=== PATIENT | female | born 1990 | race Two or more races ===

== ENCOUNTER 2022-02-13 17:15 | Emergency (ER) | payer OTHER ==
[2022-02-13 17:23] VITALS: BMI 18.6
[2022-02-13] MEDS ORDERED: ACETAMINOPHEN 325 MG TABLET (FP) PO ONE (17:58)
[2022-02-13] MEDS ORDERED: IBUPROFEN 600 MG TABLET (FP) PO ONE ×2 (17:58→18:08)
[2022-02-13] MEDS ORDERED: SODIUM CHLORIDE 0.9% 500 ML INFUS.BAG IV ONE (17:58)
[2022-02-13] MEDS ORDERED: ACETAMINOPHEN 325 MG TABLET (FP) ONE (18:07)
[2022-02-13 19:41] VITALS: BP 101/54; PULSE 121; TEMP 99.2
[2022-02-14 16:08] LABS: SARS-CoV-2 NAA Detected (Not Detected)
== END 2022-02-13 20:00 | disposition home or self-care (01) ==
LOC: JER 17:15
DX: U07.1 COVID-19 (principal); R68.83 Chills (without fever)
CPT/HCPCS: 87651; 87804; 99283-25; C9803-CS; U0003; U0005

== ENCOUNTER 2024-09-18 09:10 | Inpatient (IN) | payer OTHER ==
[2024-09-18] MEDS: LACTATED RINGERS SOLUTION 500 ML IV ONE (10:27)
[2024-09-18] MEDS ORDERED: morphine SULFATE 4 MG/ML VIAL ONE (13:03)
[2024-09-18] MEDS: morphine SULFATE 4 MG/ML VIAL IVPUSH ONE (13:10)
[2024-09-18] MEDS: LACTATED RINGERS SOLUTION 1,000 ML IV SCH (14:34)
[2024-09-18 16:19] VITALS: BMI 27.1
[2024-09-18 17:38] LABS: HEMATOCRIT 40.5 % (32.4-45.2); HEMOGLOBIN 13.8 GM/dL (10.7-15.3); MCH 33.4 pg (25.7-33.7); MCHC 34.1 g/dl (32.0-36.0); MEAN CELL VOLUME 97.9 fl (80-96); MEAN PLT VOLUME 9.2 fl (7.5-11.1); PLATELET COUNT 122 10^3/uL (134-434); RBC 4.14 M/mm3 (3.60-5.2); RDW 13.3 % (11.6-15.6); WHITE BLOOD COUNT 13.4 K/mm3 (4.0-10.0)
[2024-09-18 17:47] LABS: INR 0.91 (0.83-1.09); PROTHROMBIN TIME (PATIENT) 10.5 SEC (9.7-13.0)
[2024-09-18 17:49] LABS: ACTIVATED PTT 26.4 SECONDS (25.2-36.5)
[2024-09-18 18:00] LABS: POTASSIUM 3.7 mmol/L (3.5-5.1)
[2024-09-18 18:02] LABS: BLOOD UREA NITROGEN 4.1 mg/dL (7-18)
[2024-09-18 18:05] LABS: CREATININE 0.5 mg/dL (0.55-1.3)
[2024-09-18] MEDS ORDERED: FENTANYL/BUPIVACAINE/NS/PF - PCEA - 50 ML DISP.SYRIN EP ONE (18:50)
[2024-09-18] MEDS ORDERED: NALOXONE HCL 0.4 MG/ML VIAL IVPUSH PRN (18:54)
[2024-09-18] MEDS ORDERED: BUPIVACAINE HCL/PF 0.25% (2.5MG/ML) 10 ML VIAL ONE ×3 (18:57→20:06)
[2024-09-18] MEDS: FENTANYL/BUPIVACAINE/NS/PF - PCEA - 50 ML DISP.SYRIN EP SCH (19:15)
[2024-09-18] MEDS ORDERED: FENTANYL CITRATE/PF 50 MCG/ML VIAL ONE (19:37)
[2024-09-18 20:34] LABS: ANISOCYTOSIS 1+; MACROCYTOSIS 1+
[2024-09-18] MEDS ORDERED: LIDOCAINE HCL 1% PRESERVATIVE FREE - 30ML VIAL ONE (22:20)
[2024-09-18] MEDS ORDERED: OXYTOCIN 20 UNITS in 0.9% NS 20 UNIT/1,000 ML INFUS.BAG IV ONE (22:20)
[2024-09-18] MEDS ORDERED: TERBUTALINE SULFATE 1 MG/1 ML VIAL SQ ONE (22:51)
[2024-09-18] MEDS: TERBUTALINE SULFATE 1 MG/1 ML VIAL SQ ONE (22:55)
[2024-09-19] MEDS ORDERED: FENTANYL/BUPIVACAINE/NS/PF - PCEA - 50 ML DISP.SYRIN EP ONE (00:02)
[2024-09-19] MEDS: OXYTOCIN 20 UNITS in 0.9% NS 20 UNIT/1,000 ML INFUS.BAG IV SCH (00:15)
[2024-09-19 00:47] LABS: CORD BASE EXCESS -8.8 mmol/L (0-2); CORD HCO3 19.5 mmHg (20-29); CORD HCO3 20.7 mmHg (20-29); CORD PCO2 42.7 mmHg (30-78); CORD PCO2 59.3 mmHg (30-78); CORD pH 7.161 (7.14-7.44); CORD pH 7.277 (7.14-7.44)
[2024-09-19] MEDS ORDERED: METHYLERGONOVINE MALEATE 0.2 MG/1 ML AMP IM PRN (00:48)
[2024-09-19] MEDS ORDERED: ACETAMINOPHEN 325 MG TABLET (FP) PO PRN (00:48)
[2024-09-19] MEDS ORDERED: WITCH HAZEL 50% (TUCKS) 40 PAD/JAR PAD TP PRN (00:48)
[2024-09-19] MEDS ORDERED: BENZOCAINE 20% 57 GM BOTTLE TP PRN (00:48)
[2024-09-19] MEDS ORDERED: BISACODYL 10 MG SUPP.RECT RC PRN (00:48)
[2024-09-19] MEDS ORDERED: BENZOCAINE 28 GM HEMORRHOIDAL OINTMENT TP PRN (00:48)
[2024-09-19] MEDS ORDERED: oxyCODONE HCL 5 MG TABLET PO PRN (00:48)
[2024-09-19] MEDS: IBUPROFEN 600 MG TABLET (FP) PO PRN (03:12)
[2024-09-19] MEDS: LACTATED RINGERS SOLUTION 1,000 ML/1,000 ML INFUS.BAG IV SCH (04:39)
[2024-09-19] MEDS: FERROUS SO4 325 MG TABLET (FP) PO SCH (10:52)
[2024-09-19] MEDS: PRENATAL VITAMINS W/ FOLIC ACID TABLET (FP) PO SCH (10:52)
[2024-09-20 08:14] LABS: BASO % 0.2 % (0-2.0); EOS % 0.5 % (0-4.5); HEMATOCRIT 32.4 % (32.4-45.2); HEMOGLOBIN 10.9 GM/dL (10.7-15.3); LYMPH % 8.2 % (8-40); MCH 33.4 pg (25.7-33.7); MCHC 33.6 g/dl (32.0-36.0); MEAN CELL VOLUME 99.4 fl (80-96); MEAN PLT VOLUME 9.4 fl (7.5-11.1); MONO % 4.9 % (3.8-10.2); NEUT % 86.2 % (42.8-82.8); PLATELET COUNT 112 10^3/uL (134-434); RBC 3.25 M/mm3 (3.60-5.2); RDW 13.7 % (11.6-15.6); WHITE BLOOD COUNT 13.1 K/mm3 (4.0-10.0)
[2024-09-20] MEDS: SENNOSIDES/DOCUSATE COMBO (SENNA PLUS) TABLET (UD) PO PRN (22:05)
[2024-09-21 08:25] VITALS: TEMP 98
[2024-09-21 11:46] VITALS: BP 117/66; PULSE 93; RESP 18
== END 2024-09-21 13:30 | disposition home or self-care (01) | DRG 560 ==
LOC: JDEL 09:10 → JLDR 15:50 → J3W 09-19 03:24
PROVIDERS: ADMIT Obstetrics & Gynecology; ATTEND Obstetrics & Gynecology
PROC: 10E0XZZ Delivery of Products of Conception, External Approach (ICD-10-PCS; principal; 2024-09-19)
PROC: 0KQM0ZZ Repair Perineum Muscle, Open Approach (ICD-10-PCS; 2024-09-19)
DX: O70.1 Second degree perineal laceration during delivery (principal); Z3A.40 40 weeks gestation of pregnancy; Z37.0 Single live birth
CPT/HCPCS: 36415; 36600; 59409; 76819-TC; 80048; 82803; 85025; 85610; 85730; 86780; 86850; 86900; 86901